=== PATIENT | male | born 2000 | race Caucasian/White ===

== ENCOUNTER 2021-07-18 15:47 | Emergency (ER) | payer OTHER ==
[~2021-07-18] VITALS: Ht 165.1 cm; Wt 59.0 kg
[2021-07-18 16:36] LABS: URINE BLOOD 3+ (Negative); URINE CLARITY SL CLOUDY; URINE COLOR YELLOW; URINE GLUCOSE-RANDOM NEGATIVE (Negative); URINE KETONES TRACE (Negative); URINE LEUKOCYTES-REFLEX NEGATIVE (Negative); URINE NITRITE-REFLEX NEGATIVE (Negative); URINE PROTEIN TRACE (Negative); URINE SPECIFIC GRAVITY 1.025 (1.005-1.030)
[2021-07-18 16:38] LABS: URINE BILIRUBIN 1+ (Negative)
[2021-07-18 16:42] LABS: ICTOTEST (BILI CONFIRMATORY) Negative (Negative)
[2021-07-18 16:46] LABS: BACTERIA-REFLEX 1-9 Few /HPF (None Seen); CASTS None Seen /LPF (None Seen); CRYSTALS None Seen /LPF (None Seen); MUCUS >6 Heavy strn/LPF (None Seen); SQUAMOUS >10 Many /LPF (0-3); URINE WBC-REFLEX 0-5 Rare /HPF (0-5)
[2021-07-18 17:21] LABS: HEMATOCRIT 39.9 % (42.0-52.0); HEMOGLOBIN 13.3 gm/dL (14.0-18.0); MCH 28.9 pg (26.0-34.0); MCHC 33.3 g/dL (28.0-37.0); MCV 86.6 fL (80.0-100.0); NUCLEATED RBCS 0 /100WBC; PLATELET COUNT* 226 thou/uL (150-400); RDW-CV 13.9 % (10.5-14.5); WBC 6.4 thou/uL (4.0-11.0)
[2021-07-18 17:49] LABS: CALCIUM 8.8 mg/dL (8.5-10.1); CREATININE 0.8 mg/dL (0.6-1.3); POTASSIUM 3.2 mmol/L (3.5-5.1)
[2021-07-18 17:53] LABS: ALBUMIN 4.2 g/dL (3.4-5.0); TOTAL BILIRUBIN 0.8 mg/dL (<0.1-1.0); TOTAL PROTEIN 7.5 g/dL (6.4-8.2)
[2021-07-18 18:00] LABS: ABSOLUTE LYMPHOCYTES 2.4 thou/uL (0.8-5.3); ABSOLUTE MONOCYTES 0.3 thou/uL (0.0-1.2); ABSOLUTE NEUTROPHILS 3.8 thou/uL (1.6-8.1); ATYPICAL LYMPHS 10 %
[2021-07-18 18:01] LABS: LARGE PLATELETS RARE; PLATELET ESTIMATE ADEQUATE
[2021-07-18] MEDS ORDERED: AUGMENTIN 875-1 EACH PO (20:12)
[2021-07-18 20:43] VITALS: BP 130/80
== END 2021-07-18 20:44 | disposition home or self-care (01) ==
LOC: M.ERS 15:47
PROVIDERS: Family Medicine; Nurse Practitioner Family
DX: N39.0 Urinary tract infection, site not specified (principal); J45.909 Unspecified asthma, uncomplicated; Z88.6 Allergy status to analgesic agent; Z88.8 Allergy status to other drugs, medicaments and biological substances